=== PATIENT | female | born 1990 | race Caucasian/White ===

== ENCOUNTER 2017-07-03 11:52 | Emergency (ER) | payer OTHER ==
[2017-07-03 12:00] VITALS: BP 129/69; PULSE 88; TEMP 99.1; BMI 26.3
--- NOTE | 2017-07-03 13:44 | PDOC ---
History of Present Illness - General History Source: Patient, Spouse Exam Limitations: No Limitations - History of Present Illness Initial Comments: 07/03/17 13:45 Patient is a 27 year old female with a past medical history of asthma, status post a 3 teeth removal, presenting to the emergency department with a complaint of tooth pain. Patient had 3 teeth removed 4 days ago on 06/29/17. Patient required the teeth removed because they were growing out of place. She says they were her wisdom teeth that were removed. Patient was taking Tylenol with Codine 300/20 tabs Q4 for main management however ran out of her medication. Patient complaint the medication was causing confusion and not extremely helpful. Patient additionally was placed on Amoxicillin to be taken TID for 5 days. She has been compliant with antibiotic regiment. She reports the tooth pain being an 8/10. She has limited ROM of her jaw due to pain. Patient has no follow up appointment with a dentist at this time. Patient has additional complaints of nipple tenderness bilaterally since the surgery. Denies current redness. Denies history of history of piercings. Denies nipple discharge or cracking. Denies current Patient has an IUD LMP June 06 <Yury Benz - Last Filed: 07/03/17 13:56> - General History Source: Patient Exam Limitations: No Limitations - History of Present Illness Timing/Duration: getting worse Severity: severe Associated Symptoms: reports: denies symptoms <Annabella Neves - Last Filed: 07/03/17 14:37> - General Chief Complaint: Headache Stated Complaint: TOOTHACHE Time Seen by Provider: 07/03/17 13:07 Past History <Yury Benz - Last Filed: 07/03/17 13:56> - Past Medical History Asthma: Yes Suicide Attempt (Hx): No - Immunization History Immunization Up to Date: Yes - Psycho/Social/Smoking Cessation Hx Anxiety: No Suicidal Ideation: No Smoking History: Never smoked Information on smoking cessation initiated: No Hx Alcohol Use: No Drug/Substance Use Hx: No Substance Use Type: None <Annabella Neves - Last Filed: 07/03/17 14:37> - Past Medical History Allergies/Adverse Reactions: Allergies Allergy/AdvReac Type Severity Reaction Status Date / Time SEAFOOD Allergy Rash Uncoded 07/03/17 11:59 Home Medications: Ambulatory Orders Albuterol Sulfate Inhaler - [Ventolin HFA Inhaler -] 2 inh PO Q4H #1 inh Oxycodone HCl/Acetaminophen [Percocet 5-325 mg Tablet] 1 tab PO HS PRN #3 tablet MDD 1 07/03/17 Review of Systems - Review of Systems Able to Perform ROS?: Yes Is the patient limited Belarusian proficient: No Constitutional: No: Chills, Fever HEENTM: Yes: Dental Problems (extraction upper and left wisdom teeth removed and right upper widom tooth removal on 06/29) Respiratory: No: Symptoms reported Cardiac (ROS): No: Symptoms Reported ABD/GI: No: Symptoms Reported : No: Symptoms Reported Musculoskeletal: No: Symptoms Reported Integumentary: No: Symptoms Reported Neurological: No: Symptoms reported All Other Systems: Reviewed and Negative (Breast: bilateral nipple tendenress, no redness, no discharge, no cracking, no inversion.) <Yury Benz - Last Filed: 07/03/17 13:56> - Review of Systems Able to Perform ROS?: Yes Is the patient limited Bel[place]ian proficient: No Constitutional: No: Symptoms Reported HEENTM: Yes: Mouth Pain (left upper and lower posterior molar pain at extraction site, rt. upper molar extraction site pain ), Dental Problems Respiratory: No: Symptoms reported Cardiac (ROS): No: Symptoms Reported Musculoskeletal: No: Symptoms Reported Integumentary: No: Symptoms Reported Neurological: No: Symptoms reported <Annabella Neves - Last Filed: 07/03/17 14:37> *Physical Exam - Vital Signs Last Vital Signs Temp Pulse Resp BP Pulse Ox 99.1 F 88 18 129/69 100 07/03/17 11:56 07/03/17 11:56 07/03/17 11:56 07/03/17 11:56 07/03/17 11:56 <Yury Benz - Last Filed: 07/03/17 13:56> - Vital Signs Last Vital Signs Temp Pulse Resp BP Pulse Ox 99.1 F 88 18 129/69 100 07/03/17 11:56 07/03/17 11:56 07/03/17 11:56 07/03/17 11:56 07/03/17 11:56 - Physical Exam General Appearance: Yes: Appropriately Dressed HEENT: positive: TMs Normal, Other (left posterior upper and lower extraction site tenderness, with minimal redeness of gum, rt. upper posterior molar site extraction with minimal edema and erythema). negative: Pharyngeal Erythema, Tonsillar Exudate, Tonsillar Erythema, Nasal Congestion, Rhinorrhea, Sinus Tenderness, Hearing Decreased Neck: negative: Lymphadenopathy (R), Lymphadenopathy (L) Respiratory/Chest: positive: Lungs Clear, Normal Breath Sounds. negative: Chest Tender, Respiratory Distress Cardiovascular: positive: Regular Rhythm, Regular Rate, S1, S2 Comments:: 07/03/17 14:32 Breasts; no nodules or mass felt b/l breasts, b/l breasts symmetrical with no dimpling of skin or peau d'orange, nipples non inverted, no cracking or discharge Integumentary: positive: Normal Color, Other (no facial edema ) Neurologic: positive: Alert, Normal Response, Responsive <Annabella Neves - Last Filed: 07/03/17 14:37> *DC/Admit/Observation/Transfer - Attestations Scribe Attestion: 07/03/17 13:59 Documentation prepared by Yury Benz, acting as medical office administrator for Annabella Neves NP <Yury Benz - Last Filed: 07/03/17 13:56> <Annabella Neves - Last Filed: 07/03/17 14:37> Diagnosis at time of Disposition: History of tooth extraction Qualifiers: Tooth loss class: unspecified tooth loss Qualified Code(s): K08.409 - Partial loss of teeth, unspecified cause, unspecified class - Discharge Dispostion Disposition: HOME Condition at time of disposition: Stable - Prescriptions Prescriptions: Oxycodone HCl/Acetaminophen [Percocet 5-325 mg Tablet] 1 tab PO HS PRN #3 tablet MDD 1 PRN Reason: Severe Pain - Referrals Referrals: April Franklin MD [Primary Care Provider] - - Patient Instructions Additional Instructions: Avoid eating or drinking verty hot or cold items or crunchy items, soft foods would be best Up with dentist within the next few days Return here if any swelling of his face or worsening pain or fever or any new symptoms develop Today your test was negative Patient voiced understanding of discharge instructions and all questions were answered - Post Discharge Activity Work/School Note: Back to Work
[2017-07-03] MEDS ORDERED: IBUPROFEN 600 MG TABLET (FP) PO ONE ×2 (14:24→14:26)
== END 2017-07-03 14:38 | disposition home or self-care (01) ==
LOC: JERFT 11:52
DX: K08.409 Partial loss of teeth, unspecified cause, unspecified class (principal)
CPT/HCPCS: 84703; 99281-25

== ENCOUNTER 2019-08-19 13:38 | Emergency (ER) | payer OTHER ==
[2019-08-19 13:59] VITALS: BP 114/68; PULSE 70; TEMP 98.2; BMI 23.8
--- NOTE | 2019-08-19 15:39 | PDOC ---
History of Present Illness - General Chief Complaint: Injury Stated Complaint: LT PINKY INJURY Time Seen by Provider: 08/19/19 14:02 - History of Present Illness Initial Comments: 08/19/19 15:36 29-year-old female without comorbidities presents for evaluation of left fifth finger pain. She states a week ago she was moving a couch and felt the pain in her left finger as she dropped the couch now is unable to straighten her left finger. She points to the DIPJ as the area of her discomfort Past History - Past Medical History Allergies/Adverse Reactions: Allergies Allergy/AdvReac Type Severity Reaction Status Date / Time SEAFOOD Allergy Rash Uncoded 08/19/19 13:55 Home Medications: Ambulatory Orders Albuterol Sulfate Inhaler - [Ventolin HFA Inhaler -] 2 inh PO Q4H #1 inh Oxycodone HCl/Acetaminophen [Percocet 5-325 mg Tablet] 1 tab PO HS PRN #3 tablet MDD 1 07/03/17 Asthma: Yes COPD: No - Immunization History Immunization Up to Date: Yes - Psycho Social/Smoking Cessation Hx Smoking History: Never smoked Hx Alcohol Use: No Drug/Substance Use Hx: No Substance Use Type: None Review of Systems - Review of Systems Musculoskeletal: Yes: Joint Pain *Physical Exam - Vital Signs Last Vital Signs Temp Pulse Resp BP Pulse Ox 98.2 F 70 18 114/68 100 08/19/19 13:55 08/19/19 13:55 08/19/19 13:55 08/19/19 13:55 08/19/19 13:55 - Physical Exam Comments: 08/19/19 15:37 Left fifth finger skin color and temperature are normal. The DIPJ of the left fifth finger is held in flexion. There is no active extension. No gross sensory deficits. FDS and FDP work independently. Tenderness over the dorsum of the DIPJ of the left fifth finger. ED Treatment Course - RADIOLOGY Radiology Studies Ordered: Category Date Time Status FINGER(S) LEFT [RAD] Stat Radiology 08/19/19 14:40 Taken Medical Decision Making - Medical Decision Making 08/19/19 15:37 Patient placed in a extension splint for mallet finger. Discussed the use of the splint and follow-up with hand surgery. Discharge - Discharge Information Problems reviewed: Yes Clinical Impression/Diagnosis: Mallet deformity of little finger Condition: Stable Disposition: HOME - Admission No - Follow up/Referral Referrals: Hong Duval MD [Primary Care Provider] - Julio Baer MD [Staff Physician] - - Patient Discharge Instructions Additional Instructions: Please follow-up with hand surgery in 1 to 2 days for further evaluation and treatment options. Without fail please follow-up with hand surgery. Return to the emergency room for worsening symptoms. Please leave the splint on until seen and evaluated by hand surgery. - Post Discharge Activity
== END 2019-08-19 15:39 | disposition home or self-care (01) ==
LOC: JERFT 13:38
PROC: 2W3KX1Z Immobilization of Left Finger using Splint (ICD-10-PCS; principal; 2019-08-19)
DX: M20.012 Mallet finger of left finger(s) (principal); Z87.09 Personal history of other diseases of the respiratory system; Z91.013 Allergy to seafood
CPT/HCPCS: 29130; 73140-TC-LT-FY; 99281-25

== ENCOUNTER 2019-12-01 18:49 | Emergency (ER) | payer OTHER ==
[2019-12-01 18:56] VITALS: BP 112/65; PULSE 83; TEMP 98.3; BMI 24.1
--- NOTE | 2019-12-01 19:36 | PDOC ---
History of Present Illness - General Chief Complaint: Pain, Acute Stated Complaint: ABCESS ON L BREAST Time Seen by Provider: 12/01/19 19:33 History Source: Patient Exam Limitations: No Limitations - History of Present Illness Initial Comments: 12/01/19 19:35 PCP: Dr. Hong Duval HPI: 29yo F with PMH asthma presenting with 20 days of worsening breast pain and lump. Patient notice pain in her left breast just lateral to the areola on November 12. She later identified a mass in the area. Since this time her pain has worsened, she went to her PCP who arranged a breast US on 12/04/19 and prescribed Naproxen 500mg q12h. Patient reports she has only taken this and has not tried anything else. It provides some relief but wears off before time for the next dose. Denies skin changes, denies weight loss, sweats, fevers, chills, nipple discharge. Endorses mild nausea, no vomiting. Denies any other symptoms. All: NKDA Meds: Asthma meds, Naproxen 500 q12 PMH: Denies PSH: Denies Past History - Past Medical History Allergies/Adverse Reactions: Allergies Allergy/AdvReac Type Severity Reaction Status Date / Time SEAFOOD Allergy Rash Uncoded 12/01/19 18:53 Asthma: Yes COPD: No - Immunization History Immunization Up to Date: Yes - Psycho Social/Smoking Cessation Hx Smoking History: Never smoked Hx Alcohol Use: No Drug/Substance Use Hx: No Substance Use Type: None Review of Systems - Review of Systems Able to Perform ROS?: Yes Is the patient limited Arabic proficient: Yes Constitutional: No: Chills, Fever, Night Sweats, Weakness, Unexplained wgt Loss HEENTM: No: Nose Pain, Nose Congestion Respiratory: No: Cough, Orthopnea, Shortness of Breath Cardiac (ROS): No: Chest Pain, Edema, Irregular Heart Rate, Syncope ABD/GI: No: Constipated, Diarrhea, Nausea, Poor Appetite, Poor Fluid Intake, Vomiting : No: Burning, Dysuria, Discharge Musculoskeletal: No: Muscle Pain, Muscle Weakness Integumentary: No: Pallor, Pruritus, Rash Neurological: No: Headache, Numbness, Tingling, Weakness Psychiatric: No: Anxiety, Change in Appetite Endocrine: No: Increased Thirst, Increased Urine Hematologic/Lymphatic: No: Anemia, Blood Clots, Easy Bleeding All Other Systems: Reviewed and Negative *Physical Exam - Vital Signs Last Vital Signs Temp Pulse Resp BP Pulse Ox 98.3 F 83 18 112/65 99 12/01/19 18:54 12/01/19 18:54 12/01/19 18:54 12/01/19 18:54 12/01/19 18:54 - Physical Exam 12/01/19 20:32 Vitals reviewed, AFVSS GEN: Well appearing, appears stated age, NAD, comfortable. AAOx3. HEENT: NCAT, EOMI, PERRL. Sclera anicteric, noninjected. No facial asymmetry. Moist mucous membranes. Normal voice. Trachea midline. CV: RRR, S1/S2, no murmurs / rubs / gallops appreciated. BREAST: Non-fluctuant, indurated region (difficulty to size given apparent depth , maybe 0.5x1cm with irregular borders) adjacent to the left areola, no overlying skin changes, tender to palpation - somewhat distractable. LUNG: CTAB, normal work of breathing. No wheezes, rales, rhonchi. No cough. Speaking full sentences. GI: Soft, NTND, +BS, no guarding, no rebound. No masses. Neg CVAT b/l. EXTREMITIES: 2+ distal pulses. No LE edema. No obvious deformities of all extremities. SKIN: Warm, dry, no rashes appreciated, non-jaundiced. PSYCH: Normal mood and affect. Cooperative and appropriate. NEURO: CN grossly intact. Moving all extremities well. Normal strength and sensation grossly. Medical Decision Making - Medical Decision Making 12/01/19 19:35 29yo F with PMH asthma presenting with subacute progressive breast pain and mass. No overlying skin changes, normal vitals, no drainable abscess appreciated with physical exam. Concerning for deep abscess vs malignancy. Patient needs breast ultrasound (scheduled for 12/04). Pain management / OTC additions discussed with patient. - Toradol IM - Tylenol PO - F/u for US as scheduled Dispo: Home Discharge - Discharge Information Problems reviewed: Yes Clinical Impression/Diagnosis: Breast pain Condition: Good Disposition: HOME - Admission No - Follow up/Referral Referrals: Hong Duval MD [Primary Care Provider] - - Patient Discharge Instructions Patient Printed Discharge Instructions: DI for Breast Mass -- Uncertain Cause Additional Instructions: Usted fue vista y evaluada en el servicio de urgencias por prado dolor en los senos. Contine tomando prado Naproxeno segn lo prescrito. Tambin tome Tylenol extra jeannette cada 8 horas para el dolor. Puede usar compresas tibias en el radha si ayudan a proporcionar alivio. Vaya a prado ultrasonido programado el mircoles y bunny un seguimiento con prado PCP segn lo programado. Regrese al servicio de urgencias para conocer cualquier sntoma nuevo relacionado. You were seen and evaluated in the ED for your breast pain. Continue to taek your Naproxen as prescribed. Also take Extra Strength Tylenol every 8 hours for your pain. You can use warm compresses on the area if they help provide relief. Go to your scheduled ultrasound on Monday and follow up with your PCP as scheduled. Return to the ED for any new concerning symptoms. Print Language: NEPALI - Post Discharge Activity
[2019-12-01] MEDS ORDERED: KETOROLAC TROMETHAMINE 15 MG/ML VIAL IM ONE (20:12)
[2019-12-01] MEDS ORDERED: ACETAMINOPHEN 500 MG TABLET (FP) PO ONE (20:12)
--- NOTE | 2019-12-01 20:16 | PDOC ---
Documentation entered by Dominga Olivia SCRIBE, acting as scribe for Elena Almanzar MD. Elena Almanzar MD: This documentation has been prepared by the eduaribe, Dominga Olivia SCRIBE, under my direction and personally reviewed by me in its entirety. I confirm that the documentation accurately reflects all work, treatment, procedures, and medical decision making performed by me. Attending Attestation - Resident Resident Name: Jeffrey Katz - ED Attending Attestation I have performed the following: I have examined & evaluated the patient, The case was reviewed & discussed with the resident, I agree w/resident's findings & plan, Exceptions are as noted - HPI HPI: 12/01/19 20:12 29-year-old female who was recently diagnosed with a breast mass and has ultrasound scheduled for this Monday presents because of left breast pain - Physicial Exam PE: 12/01/19 20:13 Well-nourished well-developed 29-year-old female with complaint of left lateral breast pain Head normocephalic atraumatic Neck is supple Lungs are clear bilaterally Chest left breast has lateral tenderness to palpation but there is no discharge from the nipple, no skin changes, no area of induration or erythema Extremities full range of motion, no deformities Neuro alert oriented x3, ambulating with ease - Medical Decision Making 12/01/19 20:15 This patient has an appointment for breast ultrasound on this Monday to further eval evaluate the left breast area 12/01/19 20:17 plan pain meds/discharge
[2019-12-01] MEDS ORDERED: ACETAMINOPHEN 325 MG TABLET (FP) ONE (20:26)
[2019-12-01] MEDS ORDERED: KETOROLAC TROMETHAMINE 15 MG/ML VIAL ONE (20:26)
== END 2019-12-01 20:43 | disposition home or self-care (01) ==
LOC: JER 18:49
PROC: 3E0233Z Introduction of Anti-inflammatory into Muscle, Percutaneous Approach (ICD-10-PCS; principal; 2019-12-01)
DX: N64.4 Mastodynia (principal); N63.20 Unspecified lump in the left breast, unspecified quadrant
CPT/HCPCS: 96372; 99281-25

== ENCOUNTER 2021-03-23 13:58 | Emergency (ER) | payer OTHER ==
[2021-03-23 14:18] VITALS: BP 121/87; PULSE 79; TEMP 97.9; BMI 25.7
== END 2021-03-23 15:30 | disposition home or self-care (01) ==
LOC: JERFT 13:58 → JER 13:58 → JERFT 15:30
DX: A69.20 Lyme disease, unspecified (principal); R42 Dizziness and giddiness
CPT/HCPCS: 99281-25

== ENCOUNTER 2021-04-09 12:32 | Emergency (ER) | payer OTHER ==
[2021-04-09 12:37] VITALS: BP 133/65; PULSE 105; TEMP 98.2; BMI 25.8
[2021-04-09] MEDS ORDERED: ACETAMINOPHEN 1000 MG/100 ML VIAL (NON FORMULARY) IVPB ONE (13:16)
[2021-04-09] MEDS ORDERED: SODIUM CHLORIDE 1,000 ML IV STA (13:16)
[2021-04-09] MEDS ORDERED: METOCLOPRAMIDE HCL INJECTION 10 MG/2 ML VIAL IVPB ONE (13:16)
[2021-04-09] MEDS ORDERED: METOCLOPRAMIDE HCL INJECTION 10 MG/2 ML VIAL ONE (13:49)
[2021-04-09] MEDS ORDERED: ACETAMINOPHEN INJECTION 100 ML IVPB ONE (13:49)
[2021-04-09 14:29] LABS: BASO % 0.9 % (0-2.0); HEMATOCRIT 39.8 % (32.4-45.2); HEMOGLOBIN 13.6 GM/dL (10.7-15.3); LYMPH % 23.8 % (8-40); MCH 32.3 pg (25.7-33.7); MCHC 34.1 g/dl (32.0-36.0); MEAN CELL VOLUME 94.8 fl (80-96); MEAN PLT VOLUME 8.9 fl (7.5-11.1); MONO % 8.9 % (3.8-10.2); NEUT % 64.4 % (42.8-82.8); PLATELET COUNT 322 K/MM3 (134-434); WHITE BLOOD COUNT 7.7 K/mm3 (4.0-10.0)
[2021-04-09 14:42] LABS: ALBUMIN 3.8 g/dl (3.4-5.0); CALCIUM 9.9 mg/dL (8.5-10.1)
[2021-04-09 14:44] LABS: CREATININE 1.1 mg/dL (0.55-1.3)
[2021-04-09 14:47] LABS: BILIRUBIN,TOTAL 0.2 mg/dL (0.2-1); TOT PROT 7.4 g/dl (6.4-8.2)
[2021-04-09] MEDS ORDERED: KETOROLAC TROMETHAMINE 60 MG/2 ML VIAL IVPUSH ONE (15:22)
[2021-04-09] MEDS ORDERED: KETOROLAC TROMETHAMINE 15 MG/ML VIAL ONE (15:49)
[2021-04-09] MEDS ORDERED: ONDANSETRON 4 MG/2 ML VIAL IVPUSH ONE (16:45)
[2021-04-09] MEDS ORDERED: ONDANSETRON 4 MG/2 ML VIAL ONE (17:17)
== END 2021-04-09 18:30 | disposition home or self-care (01) ==
LOC: JER 12:32
PROC: 3E0333Z Introduction of Anti-inflammatory into Peripheral Vein, Percutaneous Approach (ICD-10-PCS; principal; 2021-04-09)
PROC: 3E033GC Introduction of Other Therapeutic Substance into Peripheral Vein, Percutaneous Approach (ICD-10-PCS; 2021-04-09)
PROC: 3E0333Z Introduction of Anti-inflammatory into Peripheral Vein, Percutaneous Approach (ICD-10-PCS; 2021-04-09)
PROC: 3E033GC Introduction of Other Therapeutic Substance into Peripheral Vein, Percutaneous Approach (ICD-10-PCS; 2021-04-09)
PROC: 3E033GC Introduction of Other Therapeutic Substance into Peripheral Vein, Percutaneous Approach (ICD-10-PCS; 2021-04-09)
PROC: 3E0337Z Introduction of Electrolytic and Water Balance Substance into Peripheral Vein, Percutaneous Approach (ICD-10-PCS; 2021-04-09)
DX: G43.909 Migraine, unspecified, not intractable, without status migrainosus (principal)
CPT/HCPCS: 36415; 80053; 84703; 85025; 99284-25; J0131

== ENCOUNTER 2022-07-04 19:23 | Emergency (ER) | payer OTHER ==
[2022-07-04 20:18] VITALS: BP 119/80; PULSE 78; RESP 18; TEMP 97.9; BMI 25.8
[2022-07-04] MEDS ORDERED: KETOROLAC TROMETHAMINE 15 MG/ML VIAL IM ONE (22:34)
[2022-07-04] MEDS ORDERED: KETOROLAC TROMETHAMINE 15 MG/ML VIAL ONE (23:52)
== END 2022-07-05 00:13 | disposition home or self-care (01) ==
LOC: JER 19:23
PROC: 3E0233Z Introduction of Anti-inflammatory into Muscle, Percutaneous Approach (ICD-10-PCS; principal; 2022-07-04)
DX: M25.561 Pain in right knee (principal)
CPT/HCPCS: 73562-TC-RT-FY; 84703; 93971-TC; 99285-25

== ENCOUNTER 2023-06-17 13:07 | Emergency (ER) | payer OTHER ==
[2023-06-17 13:13] VITALS: BP 119/84; PULSE 88; RESP 20; TEMP 98; BMI 24.3
[2023-06-17] MEDS ORDERED: ALPRAZolam 1 MG TABLET PO PRN (14:11)
[2023-06-17] MEDS ORDERED: ALPRAZolam 1 MG TABLET PO ONE (14:11)
[2023-06-17] MEDS ORDERED: ALPRAZolam 0.25 MG TABLET ONE (14:28)
== END 2023-06-17 14:42 | disposition home or self-care (01) ==
LOC: JER 13:07
DX: F41.9 Anxiety disorder, unspecified (principal)
CPT/HCPCS: 99283-25

== ENCOUNTER 2025-04-14 17:57 | Emergency (ER) | payer OTHER ==
[2025-04-14 18:11] VITALS: TEMP 98.5; BMI 25.0
[2025-04-14 19:06] LABS: ABSOLUTE IMMATURE GRANULOCYTES 0.03 x10^3/uL (0.0-0.031); BASOPHILS # 0.05 x10^3/uL (0.01-0.08); EOSINOPHIL % 1.7 % (0.7-5.8); EOSINOPHILS # 0.12 x10^3/uL (0.04-0.36); HEMATOCRIT 35.1 % (34.1-44.9); HEMOGLOBIN 10.9 g/dL (11.2-15.7); MCHC 31.1 g/dl (32.2-35.5); MEAN CELL VOLUME 90.9 fl (79.4-94.8); MONOCYTE # 0.71 x10^3/uL (0.24-0.86); MONOCYTE % 9.9 % (4.7-12.5); PLATELET COUNT 323 x10^3/uL (182-369); RDW 13.8 % (12.1-16.8)
[2025-04-14 19:09] LABS: EPI CELLS 27 /uL (0-25.1); HYALINE CASTS 0 /uL (0-3.1); URINE APPEARANCE CLOUDY; URINE BACTERIA 1676 /uL (0-1359); URINE BILIRUBIN NEGATIVE (NEGATIVE); URINE COLOR YELLOW; URINE GLUCOSE (UA) NEGATIVE (NEGATIVE); URINE KETONE NEGATIVE (NEGATIVE); URINE LEUK ESTERASE NEGATIVE (NEGATIVE); URINE NITRITE NEGATIVE (NEGATIVE); URINE PROTEIN NEGATIVE (NEGATIVE); URINE RBC 78 /uL (0-23.9); URINE UROBILINOGEN 0.2 mg/dL (0.2-1.0); URINE WBC 51 /uL (0-25.8)
[2025-04-14 19:12] LABS: HCG,QUALITATIVE URINE Negative
[2025-04-14] MEDS ORDERED: ACETAMINOPHEN INJECTION 100 ML ONE (19:24)
[2025-04-14] MEDS: ACETAMINOPHEN 1000 MG/100 ML BAG IVPB ONE (19:25)
[2025-04-14 19:42] LABS: POTASSIUM 4.1 mmol/L (3.5-5.1)
[2025-04-14 19:44] LABS: ALBUMIN 3.4 g/dl (3.4-5.0); BLOOD UREA NITROGEN 20.4 mg/dL (7-18); CALCIUM 9.5 mg/dL (8.5-10.1)
[2025-04-14 19:48] LABS: CREATININE 0.7 mg/dL (0.55-1.3)
[2025-04-14 19:49] LABS: BILIRUBIN,TOTAL 0.2 mg/dL (0.2-1); TOT PROT 6.6 g/dl (6.4-8.2)
[2025-04-14] MEDS ORDERED: KETOROLAC TROMETHAMINE 30 MG/1 ML VIAL ONE (20:18)
[2025-04-14] MEDS ORDERED: ONDANSETRON 4 MG/2 ML VIAL ONE (20:19)
[2025-04-14] MEDS: SODIUM CHLORIDE 1,000 ML IV STA (20:23)
[2025-04-14] MEDS: KETOROLAC TROMETHAMINE 30 MG/1 ML VIAL IVPUSH ONE (20:23)
[2025-04-14] MEDS: ONDANSETRON 4 MG/2 ML VIAL IVPUSH ONE (20:24)
[2025-04-14 20:29] LABS: HIV INTERPRETATION NEGATIVE (NEGATIVE)
[2025-04-14 20:30] LABS: HCV DIAGNOSTIC IN-HOUSE W/RFLX NON-REACTIVE (NONREACTIVE)
[2025-04-14 22:01] VITALS: BP 115/72; PULSE 74; RESP 19
== END 2025-04-14 22:07 | disposition home or self-care (01) ==
LOC: JER 17:57
PROC: 3E033NZ Introduction of Analgesics, Hypnotics, Sedatives into Peripheral Vein, Percutaneous Approach (ICD-10-PCS; principal; 2025-04-14)
PROC: 3E0333Z Introduction of Anti-inflammatory into Peripheral Vein, Percutaneous Approach (ICD-10-PCS; 2025-04-14)
PROC: 3E033GC Introduction of Other Therapeutic Substance into Peripheral Vein, Percutaneous Approach (ICD-10-PCS; 2025-04-14)
PROC: 3E0337Z Introduction of Electrolytic and Water Balance Substance into Peripheral Vein, Percutaneous Approach (ICD-10-PCS; 2025-04-14)
DX: N83.201 Unspecified ovarian cyst, right side (principal); N28.1 Cyst of kidney, acquired; R10.31 Right lower quadrant pain; R11.0 Nausea; R35.0 Frequency of micturition
CPT/HCPCS: 36415; 74177-TC; 80053; 81003; 84703; 85025; 86803; 87086; 87389; 99285-25; Q9967

== ENCOUNTER 2025-08-18 12:32 | Emergency (ER) | payer OTHER ==
[2025-08-18 12:50] VITALS: BP 115/73; PULSE 74; RESP 18; TEMP 98.2; BMI 24.5
[2025-08-18 13:55] LABS: ABSOLUTE IMMATURE GRANULOCYTES 0.01 x10^3/uL (0.0-0.031); BASOPHILS # 0.04 x10^3/uL (0.01-0.08); EOSINOPHIL % 2.0 % (0.7-5.8); EOSINOPHILS # 0.12 x10^3/uL (0.04-0.36); MCHC 30.6 g/dl (32.2-35.5); MEAN CELL VOLUME 90.7 fl (79.4-94.8); MEAN PLT VOLUME 10.5 fl (9.4-12.3); MONOCYTE # 0.63 x10^3/uL (0.24-0.86); MONOCYTE % 10.3 % (4.7-12.5); RDW 14.7 % (12.1-16.8)
[2025-08-18 13:58] LABS: EPI CELLS >36 /uL (0-25.1); HYALINE CASTS 2 /uL (0-3.1); URINE APPEARANCE CLEAR; URINE BACTERIA >9,000 /uL (0-1359); URINE BILIRUBIN NEGATIVE (NEGATIVE); URINE COLOR YELLOW; URINE GLUCOSE (UA) NEGATIVE (NEGATIVE); URINE KETONE NEGATIVE (NEGATIVE); URINE LEUK ESTERASE 1+ (NEGATIVE); URINE NITRITE POSITIVE (NEGATIVE); URINE PROTEIN NEGATIVE (NEGATIVE); URINE RBC 76 /uL (0-23.9); URINE UROBILINOGEN 0.2 mg/dL (0.2-1.0); URINE WBC 62 /uL (0-25.8)
[2025-08-18 14:09] LABS: GLUCOSE,RANDOM 80.0 mg/dL (74-106); TOT PROT 7.1 g/dl (6.4-8.2)
[2025-08-18 14:10] LABS: CO2 25.0 mmol/L (21-32)
[2025-08-18 14:12] LABS: ALK PHOS 68.0 U/L (40-150)
[2025-08-18 14:15] LABS: CREATININE 0.62 mg/dL (0.55-1.3); SGOT/AST 18.0 U/L (5-34); SGPT/ALT 15.0 U/L (0-55)
[2025-08-18 14:52] LABS: HCV DIAGNOSTIC IN-HOUSE W/RFLX NON-REACTIVE (NONREACTIVE); HIV INTERPRETATION NEGATIVE (NEGATIVE)
[2025-08-18] MEDS ORDERED: ACETAMINOPHEN 500 MG TABLET (FP) ONE (15:56)
[2025-08-18] MEDS: ACETAMINOPHEN 500 MG TABLET (FP) PO ONE (16:00)
== END 2025-08-18 16:18 | disposition home or self-care (01) ==
LOC: JER 12:32
DX: N30.01 Acute cystitis with hematuria (principal)
CPT/HCPCS: 36415; 74176-TC; 80053; 81003; 84703; 85025; 86308; 86803; 87086; 87389; 99284-25